=== PATIENT | male | born 1970 | race Caucasian/White ===

== ENCOUNTER 2020-01-12 02:10 | Outpatient (CLI) | payer MEDICAID, SELFPAY ==
--- NOTE | 2020-01-12 08:40 | DI.MRI_ITS ---
EXAM: MR THORACIC SPINE WO CLINICAL HISTORY: THORACIC BACK PAIN,CHRONIC, M54.6. TECHNIQUE: Multiplanar multisequence MRI was performed. COMPARISON: No exams were available for comparison FINDINGS: MR examination of thoracic spine was performed according to the usual protocol. No significant bony signal abnormality seen. Note is made of an apparent C6-7 disc herniation with possible impingement on spinal cord anteriorly, this level is only visualized at the upper limits of 6 sagittal images. A dditional evaluation with cervical spine MRI may be obtained for further evaluation. The thoracic spinal canal is well maintained throughout, no bony central canal spinal stenosis or keke ral foraminal stenosis seen. Spinal cord shows normal diameter and normal signal throughout. No focal cord lesion or impingement seen. There are disc bulges at T6-7, T7-8, and T9-10 without focal disc herniation. At T5-6 there is a small left lateral disc herniation without impingement on the spinal cord. At T 8 9 there is a mild broad-based disc herniation without gross impingement on the spinal cord. Remaining thoracic vertebral disc levels are unremarkable. IMPRESSION: Probable C6-7 disc herniation seen at the upper limits of the scan, incompletely visualized, correlat ion with cervical spine MRI may be obtained if clinically appropriate. Multilevel thoracic disc bulges, disc herniations at T5-6 and T8-9 without focal impingement on the s alverto cord. DATA REPOSITORY:
--- NOTE | 2020-01-12 08:45 | DI.RAD_ITS ---
EXAM: XR SHOULDER RT COMPLETE 2+V CLINICAL HISTORY: RT SHOULDER JOINT PAIN, M25.511 TECHNIQUE: COMPARISON: No exams were available for comparison FINDINGS: Five views were obtained. There may be mild narrowing of the cartilaginous joint space of the glenoh umeral joint. There are moderate marginal osteophytes the glenoid and humeral head. There are moder ate hypertrophic degenerative changes at the acromioclavicular joint noted as well. Probable small calcification of the distal supraspinatus tendon or tendon sheath. IMPRESSION: Degenerative changes of AC and glenohumeral joints, suspect supraspinatus calcific peritendinitis as well.
== END 2020-01-12 02:30 ==
PROVIDERS: Visit Provider Nurse Practitioner Family
DX: M25.511 Pain in right shoulder (principal); M19.011 Primary osteoarthritis, right shoulder; M75.81 Other shoulder lesions, right shoulder; M54.6 Pain in thoracic spine; M50.223 Other cervical disc displacement at C6-C7 level; M51.24 Other intervertebral disc displacement, thoracic region
CPT/HCPCS: 72146; 73030

== ENCOUNTER 2020-02-21 07:11 | Outpatient (CLI) | payer MEDICAID, SELFPAY ==
--- NOTE | 2020-02-21 09:00 | DI.MRI_ITS ---
EXAM: MR UPPER JOINT RT WO CLINICAL HISTORY: traumatic rotator cuff pain and weakness,bursitis,arthritis,m75.101,m75.51,. TECHNIQUE: Multiplanar multisequence MRI was performed. COMPARISON: CR XR SHOULDER RT COMPLETE 2+V from 01/12/2020 FINDINGS: MR examination of right shoulder was performed according to the usual protocol. Bones: There are moderate marginal trophic degenerative changes the glenoid and the humeral head. Th ere are sub chondral cyst cyst is noted at multiple sites, particularly posteriorly in the glenoid as sociated greater tuberosity of the humerus. There are marked atrophic changes of the acromioclavicul ar joint with apparent impingement on the myotendinous junction region of the supraspinatus mechanism and an inferior acromial spur is also present which appears to impinge supraspinatus tendon. Articular cartilage and labrum: There is marked thinning of the articular cartilage of the humeral he ad and the glenoid with some flattening of the glenoid. The labrum appears effaced without evidence of discrete tear. There is a 10 millimeter in diameter cyst projected adjacent to the inferior labru m which probably represents a paralabral cyst. Rotator cuff: There is mildly abnormal signal in supraspinatus, infraspinatus, and subscapularis tend ons consistent with mild tendinosis. No discrete tendon tear is identified. Supraspinatus appears i mpinge superiorly by acromial spur and AC hypertrophic changes without evidence of a discrete associa delfina tear. Biceps tendon and anchor: Biceps tendon appears to be mildly medially displaced from the bicipital gr oove in its superior extent. No discrete biceps tendon tear. IMPRESSION: Moderate to severe degenerative changes of the glenohumeral joint and acromioclavicular joint, Evidence of supraspinatus impingement by AC joint in inferior acromial spur with no gross rotator cuf f tear seen. DATA REPOSITORY:
== END 2020-02-21 07:31 ==
PROVIDERS: PCP Nurse Practitioner Family; Visit Provider Student in an Organized Health Care Education/Training Program
DX: M25.511 Pain in right shoulder (principal); M19.011 Primary osteoarthritis, right shoulder; M75.51 Bursitis of right shoulder; M75.41 Impingement syndrome of right shoulder
CPT/HCPCS: 73221

== ENCOUNTER 2020-04-10 11:15 | Outpatient (CLI) | payer MEDICAID, SELFPAY ==
[2020-04-11 12:23] LABS: COVID-19 RT-PCR Result NEGATIVE (Negative)
== END 2020-04-10 11:35 ==
PROVIDERS: PCP Nurse Practitioner Family; Visit Provider Student in an Organized Health Care Education/Training Program
DX: Z01.818 Encounter for other preprocedural examination (principal)
CPT/HCPCS: U0003